=== PATIENT | male | born 1985 | race Two or more races ===

== ENCOUNTER 2024-01-27 08:20 | Emergency (ER) | payer BC ==
[~2024-01-27] VITALS: Ht 172.7 cm; Wt 90.7 kg
[2024-01-27] MEDS ORDERED: ONDANSETRON HCL/PF 4 MG/2 ML VIAL ONE (08:50)
[2024-01-27] MEDS ORDERED: MORPHINE SULFATE INJ 4 MG/ML DISP.SYRIN ONE ×3 (08:51→11:55)
[2024-01-27] MEDS: IV NS 0.9% 1,000 ML BAG IV ONE (08:56)
[2024-01-27] MEDS: ONDANSETRON HCL/PF 4 MG/2 ML VIAL IVP ONE (08:57)
[2024-01-27] MEDS: MORPHINE SULFATE INJ 2 MG/ML DISP.SYRIN IV ONE ×3 (08:59→11:56)
[2024-01-27 09:03] LABS: BASOPHILS % (AUTO) 0.3 % (0.0-2.0); EOSINOPHILS # (AUTO) 0.4 K/uL (0.0-0.7); EOSINOPHILS % (AUTO) 2.8 % (0.0-6.0); HEMATOCRIT 42 % (39-51); HEMOGLOBIN 14.3 g/dL (13.5-17.5); LYMPHOCYTES # (AUTO) 2.1 K/uL (0.8-4.8); LYMPHOCYTES % (AUTO) 16.7 % (20.0-44.0); MEAN CORPUSCULAR HEMOGLOBIN 30 PG (26.0-33.0); MEAN CORPUSCULAR HGB CONC 34 g/dl (31.0-36.0); MEAN CORPUSCULAR VOLUME 88 fL (80-96); MONOCYTES # (AUTO) 1.1 K/uL (0.1-1.30); MONOCYTES % (AUTO) 8.8 % (2.0-12.0); NEUTROPHILS # (AUTO) 9.2 K/uL (1.8-8.9); NEUTROPHILS % (AUTO) 71.4 % (43.0-81.0); PLATELET COUNT (AUTO) 309 K/uL (150-450); RED BLOOD CELL COUNT(AUTO) 4.74 MIL/uL (4.5-6.0); RED CELL DISTRIBUTION WIDTH 13.9 % (11.5-15.0); WHITE BLOOD COUNT (AUTO) 12.8 K/uL (4.3-11.0)
[2024-01-27 09:15] LABS: ALBUMIN 4.3 g/dL (3.4-5.0); BILIRUBIN,DIRECT 0.1 mg/dL (0.0-0.2); BILIRUBIN,TOTAL 0.6 mg/dL (0.2-1.0); CALCIUM, SERUM 9.6 mg/dL (8.5-10.1); TOTAL PROTEIN, SERUM 8.1 g/dL (6.4-8.2)
[2024-01-27] MEDS ORDERED: IOHEXOL-300 100 ML VIAL IV ONE (09:21)
[2024-01-27] MEDS ORDERED: CT SWABBABLE VALVE TRANS SET 1 EA INFUS.SET MC ONE (09:22)
[2024-01-27] MEDS ORDERED: IV NS 0.9% 250 ML IV ONE (09:22)
[2024-01-27] MEDS: PIPERACILLIN /TAZOBACTAM 3.375 G in IV D5W 50 ML IV ONE (11:03)
[2024-01-27 11:07] LABS: APPEARANCE,URINE CLEAR (CLEAR); BILIRUBIN,URINE NEGATIVE (NEGATIVE); BLOOD, URINE TRACE Ery/uL (NEGATIVE); COLOR,URINE YELLOW (YELLOW); KETONES,URINE NEGATIVE (NEGATIVE); LEUKOCYTE ESTERASE ,URINE NEGATIVE (NEGATIVE); NITRITE, URINE NEGATIVE (NEGATIVE); PROTEIN,URINE NEGATIVE (NEGATIVE); UGLUCOSE NEGATIVE (NEGATIVE); UROBILINOGEN,URINE 0.2 EU/dL (0.2)
[2024-01-27 11:21] LABS: ADD URINE CULTURE NO; BACTERIA,URINE Rare /HPF (None Seen); RBC,URINE 0-2 /HPF (0-2); SQUAMOUS EPITHELIAL CELL,UR None Seen /HPF (None Seen); WBC,URINE NONE SEEN /HPF (0-3)
[2024-01-27] MEDS ORDERED: METR500T PO (11:36)
[2024-01-27] MEDS ORDERED: CIPR-262 PO (11:36)
[2024-01-27 12:30] VITALS: BP 119/76; TEMP 98.4; O2SAT 97
== END 2024-01-27 12:30 | disposition left against medical advice (07) ==
LOC: EDBD 08:30 → ER 08:30
DX: K81.9 Cholecystitis, unspecified (principal); J45.909 Unspecified asthma, uncomplicated
CPT/HCPCS: 99285; 96365; 96361; 96375 ×2; 96376; 76705; 74177; 85025; 80048; 87040; 83690; 80076; 81001; 36415; 80320; J2270 ×3; J2405; J2543; J7060; J7030; J7050; Q9967; G0480